=== PATIENT | female | born 1985 | race Caucasian/White ===

== ENCOUNTER 2017-03-15 12:39 | Day surgery (SDC) | payer OTHER ==
[~2017-03-15] VITALS: Ht 185.4 cm; Wt 103.4 kg
[~2017-03-15 12:39] MED LIST: BIOTIN1000 MICRO PO; BIRTH CONTROL; CHEWABLE MULTI1 EACH PO; Caltrate 600/400 PO; ENDOCET 5-3251 EACH PO; GABAPENTIN100 MG PO; JOINT SUPPORT1 EACH PO; MIRENA1 EACH IY; MULTIVITAMIN1 EAC2 PO; Motrin PO; PANTOPRAZOLE SO40 MG PO; PERCOCET 5/31 TABLET PO; PREDNISONE10 M1 PO; PROTONIX40 MG PO; TYLENOL EXTRA500 MG PO; Theragran PO; VITAMIN B12-FO1 EACH PO; Vicodin,Norco 5/325 PO; Vitamin B-12 SL; ZOFRAN4 MG PO; celeBREX
[2017-03-15 13:05] VITALS: BP 120/67
[2017-03-15] MEDS ORDERED: ENDOCET 5-3251 EACH PO (17:14)
[2017-03-15] MEDS ORDERED: IBUPROFEN800 MG PO (17:14)
[2017-03-15 17:50] VITALS: BP 112/53
[2017-03-15 18:30] VITALS: BP 106/57
== END 2017-03-15 18:35 | disposition home or self-care (01) ==
LOC: SDC 12:39
PROC: 0UBC7ZX Excision of Cervix, Via Natural or Artificial Opening, Diagnostic (ICD-10-PCS; principal; 2017-03-15)
DX: N87.1 Moderate cervical dysplasia (principal); F41.9 Anxiety disorder, unspecified; Z88.0 Allergy status to penicillin; F17.200 Nicotine dependence, unspecified, uncomplicated
CPT/HCPCS: J1100; J1885; J2250; J2405; J3010

== ENCOUNTER 2017-08-24 20:44 | Emergency (ER) | payer OTHER ==
[~2017-08-24] VITALS: Ht 188 cm; Wt 105.5 kg
[~2017-08-24 20:44] MED LIST changes: +IBUPROFEN800 MG PO
[2017-08-24 21:21] LABS: HEMATOCRIT 37.8 % (36.0-46.0); HEMOGLOBIN 12.8 G/DL (11.9-15.5); MCH 29.8 PG (29.0-34.0); MCHC 33.9 G/DL (30.0-36.0); MCV 88.1 FL (83-99); PLATELET COUNT 202 K/uL (156-360); RBC DIS.WIDTH-CV 13.1 % (11.8-14.6); RED BLOOD COUNT 4.29 M/uL (3.80-5.20)
[2017-08-24 21:29] LABS: ALBUMIN 4.2 g/dL (3.2-4.8); CHLORIDE 106 mEq/L (99-109); POTASSIUM 4.1 mEq/L (3.7-5.4); SODIUM 140 mEq/L (136-147)
[2017-08-24 21:31] LABS: GLUCOSE 93 mg/dL (70-99); TOTAL PROTEIN 7.1 g/dL (6.4-8.3)
[2017-08-24 21:33] LABS: TOTAL BILIRUBIN 0.3 mg/dL (0.0-1.0)
[2017-08-24 21:35] LABS: APPEARANCE CLEAR ((CLEAR)); BILIRUBIN NEGATIVE; BLOOD NEGATIVE; COLOR YELLOW ((YELLOW)); GLUCOSE (STRIP) NEGATIVE; KETONES 5; LEUKOCYTES NEGATIVE; NITRITE NEGATIVE; PROTEIN (STRIP) NEGATIVE; SPECIFIC GRAVITY 1.023 (1.000-1.030); UCUL ADDED? NO; UROBILINOGEN 0.2 MG/DL (0.2-1.0)
[2017-08-24 21:35] LABS: ALKALINE PHOSPHATASE 61 IU/L (3-129); CREATININE 0.9 mg/dL (0.6-1.3); GFR ESTIMATE (CALCULATED) > 59 mL/min/
[2017-08-24 21:36] LABS: AST (GOT) 24 IU/L (2-34); UREA NITROGEN (BUN) 24 mg/dL (9-23)
[2017-08-24 21:38] LABS: ALT (GPT) 36 IU/L (3-49); LIPASE 22 U/L (1.0-51.0)
[2017-08-24 21:44] LABS: QUANTITATIVE HCG < 4.0 MIU/ML
[2017-08-24] MEDS ORDERED: BENTYL20 MG PO (23:09)
[2017-08-24] MEDS ORDERED: ZOFRAN ODT8 MG PO (23:09)
[2017-08-24 23:38] VITALS: BP 145/90
== END 2017-08-24 23:40 | disposition home or self-care (01) ==
LOC: EME 20:44
DX: R10.10 Upper abdominal pain, unspecified (principal); R11.0 Nausea; E86.0 Dehydration; K21.9 Gastro-esophageal reflux disease without esophagitis; J45.909 Unspecified asthma, uncomplicated; F41.9 Anxiety disorder, unspecified; F32.9 Major depressive disorder, single episode, unspecified; F17.200 Nicotine dependence, unspecified, uncomplicated; Z97.5 Presence of (intrauterine) contraceptive device; Z87.11 Personal history of peptic ulcer disease; Z98.84 Bariatric surgery status; Z88.0 Allergy status to penicillin; Z88.1 Allergy status to other antibiotic agents; Z88.8 Allergy status to other drugs, medicaments and biological substances
CPT/HCPCS: 74022; 76705; 80053; 81003; 83690; 84702; 85027; 99281; 99285; J0500; J1885; J2405; J7030; S0028